=== PATIENT | male | born 1995 | race Caucasian/White ===

== ENCOUNTER 2019-06-22 23:31 | Emergency (ER) | payer OTHER ==
[~2019-06-22] VITALS: Ht 182.9 cm; Wt 104.0 kg
[2019-06-23] MEDS ORDERED: HYDR-3965 PO (00:50)
[2019-06-23] MEDS ORDERED: ketorolac trometh inj. 60 MG/2 ML VIAL IM ONE (00:55)
[2019-06-23 01:01] VITALS: BP 136/72
== END 2019-06-23 01:04 | disposition home or self-care (01) ==
LOC: ER 23:32
DX: S39.012A Strain of muscle, fascia and tendon of lower back, initial encounter (principal); Z79.899 Other long term (current) drug therapy; X58.XXXA Exposure to other specified factors, initial encounter; Y93.89 Activity, other specified; Y92.89 Other specified places as the place of occurrence of the external cause; Y99.8 Other external cause status
CPT/HCPCS: 96372; 99283; J1885